=== PATIENT | female | born 1990 | race African-American/Black ===

== ENCOUNTER 2020-05-23 19:20 | Emergency (ER) | payer SELFPAY | END 2020-05-23 20:26 | disposition left against medical advice (07) | LOC: ER 19:27 | DX: R68.89 Other general symptoms and signs (principal); Z53.21 Procedure and treatment not carried out due to patient leaving prior to being seen by health care provider ==

== ENCOUNTER 2021-06-22 13:40 | Emergency (ER) | payer MEDICAID ==
[~2021-06-22] VITALS: Ht 165.1 cm; Wt 75.0 kg
[2021-06-22 14:01] VITALS: BP 134/91
== END 2021-06-22 14:20 | disposition left against medical advice (07) ==
LOC: ER 13:40
DX: Z53.21 Procedure and treatment not carried out due to patient leaving prior to being seen by health care provider (principal)

== ENCOUNTER 2021-08-06 17:28 | Emergency (ER) | payer MEDICAID ==
[~2021-08-06] VITALS: Ht 172.7 cm; Wt 66.0 kg
[2021-08-06] MEDS ORDERED: OLANZAPINE 10 MG/VIAL IM ONE ×2 (17:45→18:45)
[2021-08-06] MEDS ORDERED: LORAZEPAM 2MG/ML CPJ IM ONE ×2 (17:45→18:45)
[2021-08-06 18:58] LABS: BASOPHILS % 0.6 % (0.0-2.0); EOSINOPHILS % 3.2 % (0.0-5.0); HEMATOCRIT. 30.7 % (36.0-48.0); HEMOGLOBIN. 9.9 g/dL (12.0-16.0); LYMPHOCYTES % 34.2 % (20.0-50.0); MEAN CORPUSCULAR HEMOGLOBIN 27.6 pg (28.0-32.0); MEAN CORPUSCULAR VOLUME 85.5 fL (81.0-99.0); MEAN PLATELET VOLUME 8.2 fl (7.4-10.4); MONOCYTES % 10.2 % (2.0-8.0); NEUTROPHILS % 51.8 % (40.0-76.0); PLATELET 422 x1000/uL (130-400); RED BLOOD CELL COUNT 3.59 mill/uL (4.2-5.4); RED CELL DISTRIBUTION WIDTH 15.2 % (11.6-14.6)
[2021-08-06 18:59] LABS: CLARITY URINE CLOUDY (CLEAR); COLOR URINE YELLOW (YELLOW); KETONES URINE TRACE (NEGATIVE); LEUKOCYTE ESTERASE URINE 2+ (NEGATIVE); NITRITE URINE POSITIVE (NEGATIVE); OCCULT BLOOD URINE 3+ (NEGATIVE); PH URINE 5.5 (4.5-8.0); PROTEIN URINE NEGATIVE (NEGATIVE); SPECIFIC GRAVITY URINE 1.022 (1.005-1.030)
[2021-08-06 19:05] LABS: CHLORIDE 111 mEq/L (98-107)
[2021-08-06 19:09] LABS: ETHANOL BLOOD < 10 mg/dL
[2021-08-06 19:16] LABS: *BARBITURATES SCREEN URINE NEGATIVE (NEGATIVE); *BENZODIAZEPINES SCREEN URINE NEGATIVE (NEGATIVE); *COCAINE SCREEN URINE NEGATIVE (NEGATIVE); METHADONE URINE SCREEN NEGATIVE (NEGATIVE); OPIATES URINE SCREEN NEGATIVE (NEGATIVE); PHENCYCLIDINE URINE SCREEN NEGATIVE (NEGATIVE)
[2021-08-06 19:22] LABS: *AMPHETAMINES SCREEN URINE PRESUMTIVE POSITIVE (NEGATIVE); CANNABINOID URINE SCREEN PRESUMTIVE POSITIVE (NEGATIVE)
[2021-08-06 19:34] LABS: HCG SCREEN NEGATIVE
[2021-08-06] MEDS ORDERED: LIDOCAINE HCL 1% 20ML VIAL (Pyxis) INJ INFIL ONE (19:45)
[2021-08-06] MEDS ORDERED: CEFTRIAXONE SODIUM 1 G/VIAL IM ONE (19:45)
[2021-08-06] MEDS ORDERED: LIDOCAINE HCL 1% 10 MG/ML 10ML VIAL INJ NR (20:00)
[2021-08-07] MEDS: OLANZAPINE 5MG TABLET ODT PO SCH ×2 (11:59→18:58)
[2021-08-07 19:40] VITALS: BP 112/84
== END 2021-08-07 20:33 ==
LOC: ER 17:28
DX: R44.0 Auditory hallucinations (principal); R46.2 Strange and inexplicable behavior; Z20.822 Contact with and (suspected) exposure to COVID-19; N39.0 Urinary tract infection, site not specified; F15.129 Other stimulant abuse with intoxication, unspecified; F29 Unspecified psychosis not due to a substance or known physiological condition; Z59.02 Unsheltered homelessness; F12.90 Cannabis use, unspecified, uncomplicated; D64.9 Anemia, unspecified; Z75.1 Person awaiting admission to adequate facility elsewhere
CPT/HCPCS: 36415; 80053; 80305; 80307; 80320; 80329; 81003; 81025; 82962; 84703; 85025; 96372; 99285; C9803; J0696; J2060; J3490; U0003; U0005; G0480

== ENCOUNTER 2021-09-29 12:14 | Emergency (ER) | payer MEDICAID, OTHER ==
[~2021-09-29] VITALS: Ht 165.1 cm; Wt 70.0 kg
[2021-09-29 12:26] VITALS: BP 126/66
[2021-09-29] MEDS ORDERED: SODIUM CHLORIDE 0.9% 1,000 ML IV ONE (12:30)
[2021-09-29 13:05] LABS: BASOPHILS % 0.6 % (0.0-2.0); EOSINOPHILS % 3.5 % (0.0-5.0); HEMATOCRIT. 32.8 % (36.0-48.0); HEMOGLOBIN. 10.4 g/dL (12.0-16.0); LYMPHOCYTES % 42.9 % (20.0-50.0); MEAN CORPUSCULAR HEMOGLOBIN 25.2 pg (28.0-32.0); MEAN CORPUSCULAR VOLUME 79.6 fL (81.0-99.0); MEAN PLATELET VOLUME 7.6 fl (7.4-10.4); MONOCYTES % 10.7 % (2.0-8.0); NEUTROPHILS % 42.3 % (40.0-76.0); PLATELET 390 x1000/uL (130-400); RED BLOOD CELL COUNT 4.12 mill/uL (4.2-5.4); RED CELL DISTRIBUTION WIDTH 15.7 % (11.6-14.6)
[2021-09-29 13:11] LABS: CHLORIDE 111 mEq/L (98-107)
[2021-09-29 13:17] LABS: ETHANOL BLOOD < 10 mg/dL
[2021-09-29 13:24] LABS: HCG SCREEN NEGATIVE
== END 2021-09-29 15:10 | disposition left against medical advice (07) ==
LOC: ER 12:14
DX: R46.2 Strange and inexplicable behavior (principal)
CPT/HCPCS: 36415; 80048; 80307; 80320; 80329; 84703; 85025; 99283; J7030; 80305; G0480

== ENCOUNTER 2022-04-13 07:51 | Emergency (ER) | payer MEDICAID, OTHER ==
[~2022-04-13] VITALS: Ht 154.9 cm; Wt 54.0 kg
[2022-04-13 07:52] VITALS: BP 138/86
[2022-04-13 09:18] LABS: CLARITY URINE CLOUDY (CLEAR); COLOR URINE YELLOW (YELLOW); KETONES URINE TRACE (NEGATIVE); LEUKOCYTE ESTERASE URINE 2+ (NEGATIVE); NITRITE URINE NEGATIVE (NEGATIVE); OCCULT BLOOD URINE NEGATIVE (NEGATIVE); PROTEIN URINE TRACE (NEGATIVE); SPECIFIC GRAVITY URINE 1.031 (1.005-1.030)
[2022-04-13] MEDS ORDERED: AZITHROMYCIN 500 MG TABLET PO ONE (10:15)
[2022-04-13] MEDS ORDERED: CEFTRIAXONE SODIUM 250 MG/VIAL IM ONE (10:15)
[2022-04-13] MEDS ORDERED: PENICILLIN G BENZATHINE 2,400,000 UNITS/4ML SYR IM ONE (10:15)
[2022-04-15 07:08] LABS: NEISSERIA GONORRHOEAE NAA Positive (Negative)
== END 2022-04-13 11:13 | disposition home or self-care (01) ==
LOC: ER 07:51
DX: N72 Inflammatory disease of cervix uteri (principal)
CPT/HCPCS: 81003; 81025; 87081; 87086; 87491; 87591; 96372; 99284; J0561; J0696

== ENCOUNTER 2022-04-13 17:20 | Emergency (ER) | payer OTHER | END 2022-04-13 17:41 | disposition left against medical advice (07) | LOC: ER 17:20 | DX: Z53.21 Procedure and treatment not carried out due to patient leaving prior to being seen by health care provider (principal) ==

== ENCOUNTER 2022-05-30 01:02 | Emergency (ER) | payer OTHER ==
[~2022-05-30] VITALS: Ht 167.6 cm; Wt 74.0 kg
[2022-05-30 01:34] VITALS: BP 128/88
== END 2022-05-30 07:40 | disposition left against medical advice (07) ==
LOC: ER 01:02
DX: Z53.21 Procedure and treatment not carried out due to patient leaving prior to being seen by health care provider (principal)

== ENCOUNTER 2022-08-04 00:30 | Emergency (ER) | payer OTHER ==
[~2022-08-04] VITALS: Ht 167.6 cm; Wt 72.5 kg
[2022-08-04 00:50] VITALS: BP 137/91
[2022-08-04] MEDS ORDERED: ACETAMINOPHEN 325MG TABLET PO ONE (06:15)
== END 2022-08-04 07:10 | disposition left against medical advice (07) ==
LOC: ER 00:30
DX: M25.511 Pain in right shoulder (principal)
CPT/HCPCS: 73030; 81025; 99283